=== PATIENT | female | born 1970 | race Caucasian/White ===

== ENCOUNTER 2018-08-25 14:35 | Inpatient (IN) | payer BC ==
[~2018-08-25] VITALS: Ht 185.4 cm; Wt 165.0 kg
[2018-08-25] MEDS ORDERED: PLEASE ENTER HEIGHT AND WEIGHT MC SCH (16:00)
[2018-08-25] MEDS ORDERED: PLEASE ENTER ALLERGIES MC SCH (16:00)
[2018-08-25] MEDS ORDERED: OXYcodone/APAP 7.5/325MG TABLET ONE (16:43)
[2018-08-25] MEDS: OXYcodone/APAP 7.5/325MG TABLET PO PRN ×2 (16:44→21:49)
[2018-08-25 16:48] VITALS: BP 111/73
[2018-08-25] MEDS ORDERED: ACETAMINOPHEN 325 MG TABLET PO PRN (17:00)
[2018-08-25] MEDS ORDERED: IBUPROFEN 200 MG TABLET PO PRN (17:00)
[2018-08-25] MEDS ORDERED: ALPR2TAB5 PO (17:13)
[2018-08-25] MEDS ORDERED: ALPRazolam 1MG TAB PO PRN (17:30)
[2018-08-25] MEDS: SODIUM CHLORIDE 0.9% 1,000 ML IV SCH ×2 (17:52→23:40)
[2018-08-25] MEDS: PIPERACILLIN/TAZO/PMX 3.375GM 50 ML IV SCH (17:52)
[2018-08-25] MEDS: ONDANSETRON 2MG/ML, 2ML IV PRN (17:53)
[2018-08-25 18:20] VITALS: BP 116/69
[2018-08-25 22:34] LABS: MICROSCOPIC INDICATED
[2018-08-26 00:16] VITALS: BP 121/73
[2018-08-26] MEDS: PIPERACILLIN/TAZO/PMX 3.375GM 50 ML IV SCH ×4 (01:06→20:11)
[2018-08-26] MEDS ORDERED: MORPHINE SULFATE 4 MG/ML, 1ML ONE (04:12)
[2018-08-26] MEDS: morphine SULFATE 10 MG/ML, 1ML IVPush PRN ×2 (04:13→20:20)
[2018-08-26] MEDS: ONDANSETRON 2MG/ML, 2ML IV PRN ×2 (04:14→18:21)
[2018-08-26] MEDS: SODIUM CHLORIDE 0.9% 1,000 ML IV SCH ×2 (04:14→17:27)
[2018-08-26 04:32] LABS: MEAN CORPUSCULAR HEMOGLOBIN 30.4 pg (27.0-34.8); MEAN CORPUSCULAR HGB CONC 33.5 g/dL (32.4-35.8); MEAN CORPUSCULAR VOLUME 90.8 fL (80-100); MEAN PLATELET VOLUME 8.9 fL (7.4-10.4); PLATELET COUNT 293 x10^3/uL (130-400); RED BLOOD COUNT 3.32 x10^6/uL (3.82-5.3); RED CELL DISTRIBUTION WIDTH 14.4 % (9.6-15.2)
[2018-08-26 04:39] LABS: INTERNATIONAL NORMALIZED RATIO 1.09 (0.93-1.1); PROTHROMBIN TIME 11.4 Seconds (9.6-11.5)
[2018-08-26 04:43] LABS: ANION GAP 7 mmol/L (5-15); CALCIUM 8.6 mg/dL (8.5-10.1); CHLORIDE 103 mmol/L (98-107)
[2018-08-26 04:44] LABS: CREATININE 0.58 mg/dL (0.55-1.02)
[2018-08-26 04:45] LABS: MD YES
[2018-08-26 04:47] LABS: <PLATELET ESTIMATE> ADEQUATE; <PLT MORPHOLOGY> NORMAL PLT MORPH; ANISOCYTOSIS 1+; BAND#(MANUAL) 0.15 x10^3/uL; BANDS%(MANUAL) 1 % (0-7); EOS#(MANUAL) 0.15 x10^3/uL (0.0-0.4); EOS% (MANUAL) 1 % (1-7); LYMPH#(MANUAL) 1.48 x10^3/uL (1-3.4); LYMPHS% (MANUAL) 10 % (22-44); MONOS#(MANUAL) 0.59 x10^3/uL (0.3-2.7); MONOS% (MANUAL) 4 % (2-9); POLYCHROMASIA 1+; SEG#(MANUAL) 12.43 x10^3/uL (1.8-6.8); SEGS% (MANUAL) 84 % (42-75)
[2018-08-26] MEDS: OXYcodone/APAP 7.5/325MG TABLET PO PRN ×3 (07:56→18:21)
[2018-08-26] MEDS ORDERED: LIDOCAINE-MPF 1%, 5ML ONE (08:23)
[2018-08-26] MEDS ORDERED: NALOXONE 1 MG/ML, 2ML ONE (08:34)
[2018-08-26] MEDS ORDERED: MIDAZOLAM 1 MG/ML, 5ML ONE (08:34)
[2018-08-26] MEDS ORDERED: FENTANYL PF 100 MCG/2ML ONE (08:34)
[2018-08-26] MEDS ORDERED: FLUMAZENIL 0.1 MG/1 ML, 5ML ONE (08:34)
[2018-08-26] MEDS ORDERED: KETOROLAC 30 MG/1 ML IM SCH (09:00)
[2018-08-26 09:58] VITALS: BP 86/58
[2018-08-26 10:10] VITALS: BP 132/70
[2018-08-26] MEDS: KETOROLAC 30 MG/1 ML IV PRN (12:55)
[2018-08-26 13:13] VITALS: BP 114/74
[2018-08-26 18:18] VITALS: BP 101/65
[2018-08-27 00:05] VITALS: BP 119/67
[2018-08-27] MEDS: OXYcodone/APAP 7.5/325MG TABLET PO PRN ×4 (00:06→19:33)
[2018-08-27] MEDS: SODIUM CHLORIDE 0.9% 1,000 ML IV SCH ×3 (00:25→13:50)
[2018-08-27] MEDS: PIPERACILLIN/TAZO/PMX 3.375GM 50 ML IV SCH ×4 (02:13→22:59)
[2018-08-27 05:58] LABS: CHLORIDE 108 mmol/L (98-107)
[2018-08-27 06:26] LABS: BASOPHILS # (AUTO) 0.04 x10^3/uL (0-0.1); BASOPHILS % (AUTO) 1 % (0-1); EOSINOPHILS # (AUTO) 0.29 x10^3/uL (0-0.4); EOSINOPHILS % (AUTO) 3 % (1-7); LYMPHOCYTES # (AUTO) 1.31 x10^3/uL (1-3.4); LYMPHOCYTES % (AUTO) 15 % (22-44); MD NO; MEAN CORPUSCULAR HEMOGLOBIN 30.5 pg (27.0-34.8); MEAN CORPUSCULAR HGB CONC 33.5 g/dL (32.4-35.8); MEAN CORPUSCULAR VOLUME 91.1 fL (80-100); MEAN PLATELET VOLUME 8.1 fL (7.4-10.4); MONOCYTES # (AUTO) 0.64 x10^3/uL (0.2-0.8); MONOCYTES % (AUTO) 7 % (2-9); NEUTROPHILS # (AUTO) 6.65 x10^3/uL (1.8-6.8); NEUTROPHILS % (AUTO) 75 % (42-75); PLATELET COUNT 278 x10^3/uL (130-400); RED BLOOD COUNT 3.12 x10^6/uL (3.82-5.3); RED CELL DISTRIBUTION WIDTH 14.6 % (9.6-15.2)
[2018-08-27 06:32] LABS: ANION GAP 5 mmol/L (5-15); CALCIUM 8.6 mg/dL (8.5-10.1); CREATININE 0.66 mg/dL (0.55-1.02)
[2018-08-27 06:33] VITALS: BP 102/66
[2018-08-27] MEDS: ONDANSETRON 2MG/ML, 2ML IV PRN ×2 (06:50→13:48)
[2018-08-27] MEDS: KETOROLAC 30 MG/1 ML IV PRN ×3 (08:02→23:06)
[2018-08-27 12:18] VITALS: BP 105/66
[2018-08-27 18:32] VITALS: BP 107/63
[2018-08-27] MEDS: ONDANSETRON ODT 4 MG PO PRN (19:33)
[2018-08-28 00:19] VITALS: BP 110/65
[2018-08-28] MEDS: OXYcodone/APAP 7.5/325MG TABLET PO PRN (01:57)
[2018-08-28] MEDS: SODIUM CHLORIDE 0.9% 1,000 ML IV SCH (01:58)
[2018-08-28] MEDS: PIPERACILLIN/TAZO/PMX 3.375GM 50 ML IV SCH ×2 (05:07→11:00)
[2018-08-28 06:13] LABS: BASOPHILS # (AUTO) 0.03 x10^3/uL (0-0.1); BASOPHILS % (AUTO) 1 % (0-1); EOSINOPHILS # (AUTO) 0.22 x10^3/uL (0-0.4); EOSINOPHILS % (AUTO) 3 % (1-7); LYMPHOCYTES # (AUTO) 1.73 x10^3/uL (1-3.4); LYMPHOCYTES % (AUTO) 25 % (22-44); MD NO; MEAN CORPUSCULAR HEMOGLOBIN 30.4 pg (27.0-34.8); MEAN CORPUSCULAR HGB CONC 33.1 g/dL (32.4-35.8); MEAN CORPUSCULAR VOLUME 91.9 fL (80-100); MEAN PLATELET VOLUME 8.2 fL (7.4-10.4); MONOCYTES # (AUTO) 0.48 x10^3/uL (0.2-0.8); MONOCYTES % (AUTO) 7 % (2-9); NEUTROPHILS # (AUTO) 4.49 x10^3/uL (1.8-6.8); NEUTROPHILS % (AUTO) 65 % (42-75); PLATELET COUNT 309 x10^3/uL (130-400); RED BLOOD COUNT 2.98 x10^6/uL (3.82-5.3); RED CELL DISTRIBUTION WIDTH 14.5 % (9.6-15.2)
[2018-08-28 06:17] LABS: ANION GAP 7 mmol/L (5-15); CALCIUM 8.1 mg/dL (8.5-10.1); CHLORIDE 106 mmol/L (98-107)
[2018-08-28 06:18] LABS: CREATININE 0.55 mg/dL (0.55-1.02)
[2018-08-28] MEDS ORDERED: SODIUM CHLORIDE 0.9% 1,000 ML IV SCH (08:00)
[2018-08-28] MEDS ORDERED: POTASSIUM CHLORIDE 20 MEQ in SODIUM CHLORIDE 0.9% 250 ML IV ONE (08:00)
[2018-08-28] MEDS ORDERED: HYDROmorphone 2 MG/ML, 1ML IVPush PRN (08:00)
[2018-08-28] MEDS: ONDANSETRON 2MG/ML, 2ML IV PRN ×3 (08:06→23:56)
[2018-08-28] MEDS: KETOROLAC 30 MG/1 ML IV PRN ×3 (08:06→20:39)
[2018-08-28] MEDS: MAGNESIUM HYDROXIDE 8%, 30ML UDC PO SCH ×3 (08:06→20:39)
[2018-08-28] MEDS: OXYcodone/APAP 10/325MG TABLET PO PRN ×3 (08:06→20:39)
[2018-08-28] MEDS: ENOXAPARIN 40 MG/0.4 ML SQ SCH (08:06)
[2018-08-28 08:18] VITALS: BP 121/69
[2018-08-28] MEDS: D5%-0.45NACL+KCL 20MEQ 1,000 ML IV SCH ×2 (09:29→23:55)
[2018-08-28 14:14] VITALS: BP 127/77
[2018-08-28 19:40] VITALS: BP 148/81
[2018-08-28] MEDS: CIPROFLOXACIN 500 MG TABLET PO SCH (20:39)
[2018-08-28] MEDS: AMPICILLIN 500MG CAPSULE PO SCH (20:39)
[2018-08-28 20:49] VITALS: BP 132/84
[2018-08-29] MEDS: MAGNESIUM HYDROXIDE 8%, 30ML UDC PO SCH ×2 (02:12→05:41)
[2018-08-29 02:15] VITALS: BP 108/67
[2018-08-29] MEDS: AMPICILLIN 500MG CAPSULE PO SCH ×3 (05:39→16:51)
[2018-08-29] MEDS: OXYcodone/APAP 10/325MG TABLET PO PRN ×2 (05:39→13:02)
[2018-08-29 05:58] LABS: BASOPHILS # (AUTO) 0.02 x10^3/uL (0-0.1); BASOPHILS % (AUTO) 0 % (0-1); EOSINOPHILS # (AUTO) 0.25 x10^3/uL (0-0.4); EOSINOPHILS % (AUTO) 3 % (1-7); LYMPHOCYTES # (AUTO) 1.72 x10^3/uL (1-3.4); LYMPHOCYTES % (AUTO) 24 % (22-44); MD NO; MEAN CORPUSCULAR HEMOGLOBIN 30.4 pg (27.0-34.8); MEAN CORPUSCULAR HGB CONC 33.5 g/dL (32.4-35.8); MEAN CORPUSCULAR VOLUME 90.6 fL (80-100); MEAN PLATELET VOLUME 8.2 fL (7.4-10.4); MONOCYTES # (AUTO) 0.51 x10^3/uL (0.2-0.8); MONOCYTES % (AUTO) 7 % (2-9); NEUTROPHILS # (AUTO) 4.75 x10^3/uL (1.8-6.8); NEUTROPHILS % (AUTO) 66 % (42-75); PLATELET COUNT 348 x10^3/uL (130-400); RED BLOOD COUNT 3.22 x10^6/uL (3.82-5.3); RED CELL DISTRIBUTION WIDTH 14.9 % (9.6-15.2)
[2018-08-29 06:06] LABS: ANION GAP 5 mmol/L (5-15); CHLORIDE 107 mmol/L (98-107)
[2018-08-29 08:05] VITALS: BP 105/67
[2018-08-29] MEDS: ONDANSETRON ODT 4 MG PO PRN (08:09)
[2018-08-29] MEDS: ENOXAPARIN 40 MG/0.4 ML SQ SCH (08:09)
[2018-08-29] MEDS: ONDANSETRON 2MG/ML, 2ML IV PRN (08:10)
[2018-08-29] MEDS: CIPROFLOXACIN 500 MG TABLET PO SCH (08:16)
[2018-08-29] MEDS ORDERED: OMNIPAQUE 350 MG/ML, 150 ML BOTTLE ONE (11:43)
[2018-08-29 13:53] VITALS: BP 125/80
[2018-08-29] MEDS ORDERED: HYDROmorphone 2 MG/ML, 1ML ONE (15:23)
[2018-08-29] MEDS ORDERED: HYDROmorphone 2 MG/ML, 1ML IV ONE (15:30)
[2018-08-29] MEDS ORDERED: AMPI500C2 PO (16:27)
[2018-08-29] MEDS ORDERED: CIPR500T3 PO (16:28)
== END 2018-08-29 17:10 | disposition home or self-care (01) | DRG 758 ==
LOC: 4NOR 15:12
PROVIDERS: ADMIT Specialist; ATTEND Specialist
PROC: 0W9J3ZZ Drainage of Pelvic Cavity, Percutaneous Approach (ICD-10-PCS; principal; 2018-08-26)
DX: N73.9 Female pelvic inflammatory disease, unspecified (principal); Z68.42 Body mass index [BMI] 45.0-49.9, adult; D64.9 Anemia, unspecified; E87.6 Hypokalemia; K59.00 Constipation, unspecified; D25.9 Leiomyoma of uterus, unspecified; E66.9 Obesity, unspecified; Z83.3 Family history of diabetes mellitus; Z82.49 Family history of ischemic heart disease and other diseases of the circulatory system; Z82.3 Family history of stroke; Z98.891 History of uterine scar from previous surgery; Z90.49 Acquired absence of other specified parts of digestive tract
CPT/HCPCS: 36415; 49406; 74177; 75989; 80048; 81001; 83735; 85025; 85610; 85730; 87015; 87040; 87070; 87075; 87077; 87086; 87116; 87186; 87205; 87206; 99156; 99157; G0378; J1170; J1650; J1885; J2250; J2405; J2543; J3010; J3480; Q0162; Q9967; C1729; C1769; J2270; J2310; J7030; J7050